=== PATIENT | male | born 1960 | race Asian ===

== ENCOUNTER 2020-04-20 14:29 | Emergency (ER) | payer SELFPAY ==
[~2020-04-20] VITALS: Ht 162.6 cm; Wt 72.6 kg
[2020-04-20 14:29] VITALS: BP 130/86
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
--- NOTE | 2020-04-20 14:29 | NUR ---
ED Nurse Note: per [facility], pt is not on custody anymore.
[2020-04-20] MEDS ORDERED: Tetanus/Diptheria/Pertussis IM ONE (14:45)
--- NOTE | 2020-04-20 14:45 | NUR ---
ED Nurse Note: Dr. Sandhu at bedside.
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
[2020-04-20] MEDS ORDERED: MUPIROCIN22 GM TOPIC (15:41)
[2020-04-20 15:47] VITALS: BP 135/72
--- NOTE | 2020-04-20 15:47 | NUR ---
ED Nurse Note: Pt cleared by ERPA for discharge. DC instructions/prescription was given and explained to pt and verbalized understanding of teachings. All medical deviecs such as ID band and IV line removed. Pt is AAO x4, ambulatory and left with all personal belongings.
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
== END 2020-04-20 15:47 | disposition home or self-care (01) ==
LOC: EDBD 14:29 → EMR 15:39
DX: T75.4XXA Electrocution, initial encounter (principal); S31.130A Puncture wound of abdominal wall without foreign body, right upper quadrant without penetration into peritoneal cavity, initial encounter; F10.129 Alcohol abuse with intoxication, unspecified; X58.XXXA Exposure to other specified factors, initial encounter; Y93.9 Activity, unspecified; Y92.039 Unspecified place in apartment as the place of occurrence of the external cause
CPT/HCPCS: 90471; 90715; 99283